=== PATIENT | female | born 1985 | race Caucasian/White ===

== ENCOUNTER 2021-05-13 02:39 | Emergency (ER) | payer OTHER ==
[~2021-05-13] VITALS: Ht 170.2 cm; Wt 122.7 kg
[2021-05-13] MEDS ORDERED: SYNT175T2 PO (02:50)
[2021-05-13] MEDS ORDERED: FLON1SPR NARES (02:50)
[2021-05-13] MEDS ORDERED: SING5CHW23 PO (02:50)
[2021-05-13] MEDS ORDERED: ONDANSETRON 4MG/2ML VIAL IV ONE (04:30)
[2021-05-13] MEDS ORDERED: KETOROLAC 30 MG/ML 1ML VIAL IV ONE (04:35)
--- NOTE | 2021-05-13 05:57 | REPVR ---
PROCEDURE INFORMATION: Exam: CT Abdomen And Pelvis Without Contrast Exam date and time: 05/13/2021 5:06 AM Age: 36 years old Clinical indication: Other: Left renal colic TECHNIQUE: Imaging protocol: Computed tomography of the abdomen and pelvis without contrast. Radiation optimization: All CT scans at this facility use at least one of these dose optimization techniques: automated exposure control; mA and/or kV adjustment per patient size (includes targeted exams where dose is matched to clinical indication); or iterative reconstruction. COMPARISON: No relevant prior studies available. FINDINGS: Lungs: The visualized portions of the lung bases are normal. Liver: There is a diffuse decrease in hepatic parenchymal density, consistent with fatty infiltration. Gallbladder and bile ducts: The gallbladder is normal with no stones or biliary ductal dilation. Pancreas: The pancreas appears unremarkable. No pancreatic ductal dilation identified. Spleen: The unenhanced spleen appears unremarkable. Adrenal glands: The adrenal glands are normal. Kidneys and ureters: There is an obstructing 2 mm stone at the left UVJ. There is associated mild left-sided hydronephrosis. There is mild left-sided perinephric stranding. There are nonobstructing stones in the right kidney. The right ureter appears normal with no stones or hydronephrosis. Stomach and bowel: The small bowel appears unremarkable. There is no dilation or thickening of the colon. Appendix: There has been an appendectomy. Intraperitoneal space: There is no evidence of free intraperitoneal or pelvic fluid. There is no free intraperitoneal air. Vasculature: No aortic aneurysm. Lymph nodes: No lymphadenopathy is seen. Urinary bladder: See Kidneys and ureters Findings. There is no significant bladder wall thickening. Reproductive: The uterus is unremarkable. Bones/joints: No suspicious osseous lesions. No acute fractures. Soft tissues: There is a small periumbilical hernia containing fat. There is stranding probably related to an incision scar in the lower anterior abdominal wall. IMPRESSION: 1. Obstructing 2 mm stone at the left UVJ with associated mild left-sided hydronephrosis. 2. Nonobstructing stones in the right kidney. 3. Fatty liver. Electronically signed by: Ludy Toney On 05/13/2021 05:57:11 AM
[2021-05-13] MEDS ORDERED: TAMSULOSIN 0.4 MG CAP PO ONE (06:05)
[2021-05-13] MEDS ORDERED: PERC5TAB12 PO ×2 (06:34→06:53)
[2021-05-13] MEDS ORDERED: ONDA4TAB6 PO ×2 (06:34→06:53)
[2021-05-13] MEDS ORDERED: FLOM0.4C39 PO ×2 (06:34→06:53)
[2021-05-13 06:39] VITALS: BP 136/69
== END 2021-05-13 06:45 | disposition home or self-care (01) ==
LOC: M ED 02:39
DX: N20.1 Calculus of ureter (principal); E66.9 Obesity, unspecified; K76.0 Fatty (change of) liver, not elsewhere classified; Z88.0 Allergy status to penicillin; Z88.8 Allergy status to other drugs, medicaments and biological substances
CPT/HCPCS: 74176; 80047; 81001; 84702; 87086; 96374; 96375; 99284; J1885; J2405